=== PATIENT | female | born 1970 | race Caucasian/White ===

== ENCOUNTER 2017-09-25 15:11 | Outpatient (CLI) | payer BC | END 2017-09-25 15:12 | disposition home or self-care (01) | LOC: BICMAMMO 15:11 | PROVIDERS: ATTEND Obstetrics & Gynecology | DX: Z12.31 Encounter for screening mammogram for malignant neoplasm of breast (principal) | CPT/HCPCS: 77063; 77067 ==

== ENCOUNTER 2017-10-04 08:59 | Outpatient (CLI) | payer BC | END 2017-10-04 09:00 | disposition home or self-care (01) | LOC: BICMAMMO 08:59 | PROVIDERS: ATTEND Obstetrics & Gynecology | DX: N63.20 Unspecified lump in the left breast, unspecified quadrant (principal); I88.9 Nonspecific lymphadenitis, unspecified | CPT/HCPCS: G0279 ==

== ENCOUNTER 2018-10-24 15:28 | Outpatient (CLI) | payer BC ==
[2018-10-24 16:28] LABS: Hemoglobin 14.1 g/dL (12.0-16.0); Mean Corpuscular HGB CONC 34.6 g/dL (32.0-36.0); Mean Corpuscular Hemoglobin 30.8 pg (27.0-31.0); Mean Platelet Volume 7.2 fL (7.4-10.4); Platelet Count 309 thou/uL (130-400); Red Blood Cell (RBC) Count 4.59 mill/uL (4.20-5.40); White Blood Cell (WBC) Count 9.8 thou/uL (4.8-10.8)
== END 2018-10-24 15:29 | disposition home or self-care (01) ==
LOC: LABBT 15:28
PROVIDERS: ATTEND Obstetrics & Gynecology
DX: Z01.812 Encounter for preprocedural laboratory examination (principal); R10.2 Pelvic and perineal pain; N94.10 Unspecified dyspareunia; N93.9 Abnormal uterine and vaginal bleeding, unspecified
CPT/HCPCS: 84702; 85027; 86850; 86900; 86901

== ENCOUNTER 2018-10-28 06:25 | Day surgery (SDC) | payer BC ==
[2018-10-28] MEDS ORDERED: Famotidine/PF 20 mg/2ml Vial ONE (06:53)
[2018-10-28] MEDS ORDERED: Gabapentin 300 MG CAP ONE (06:53)
[2018-10-28] MEDS ORDERED: CeleCOXIB 100 MG CAP ONE (06:54)
[2018-10-28] MEDS ORDERED: Fentanyl 250 MCG/5 ML VIAL ONE (06:55)
[2018-10-28] MEDS ORDERED: Midazolam HCl 2 mg/2 ml Vial ONE ×2 (06:55→07:39)
[2018-10-28] MEDS ORDERED: Bupivacaine HCl 0.5%/Epinephrine 1:200,000/PF 30 ml Vial ONE (06:56)
--- NOTE | 2018-10-28 07:41 | HP ---
ANTICIPATED DATE OF SURGERY: She is scheduled for surgery on 10/28/2018. HISTORY OF PRESENT ILLNESS: Ms. Espinoza is a 48-year-old white female G3, P2, A1 with 2 spontaneous vaginal deliveries. She has been having issues with chronic pelvic pain and dyspareunia. This has been an ongoing issue for over a year, but recently the dyspareunia and pelvic pain have worsened since April of 2018. Secondary to these findings where she was complaining of a chronic yellowish vaginal discharge and pain with intercourse and pain post-intercourse, she saw Dr. Jordan Mueller in June of this year. At that time, she was noted to have a yellowish vaginal discharge and some tenderness in the upper vagina and pelvis. It was felt like a bandlike area in the upper third of the vagina, which was tender on exam. She was screened for numerous infectious processes, which were all negative for GC, chlamydia, and ureaplasma. She did have evidence of Gardnerella consistent with bacterial vaginosis and was treated for this. She has had a previous negative Pap smear and HPV in January 2016. She had a pelvic ultrasound performed at that visit showing her essentially a normal ultrasound with endometrium measuring 5.8 mm. The uterus had findings consistent with adenomyosis, and no adnexal masses were seen or abnormal fluid collections. She continues to have pain on her intercourse and chronic pelvic pain, which she had received Zithromax before the discharge back in June with no significant improvement. Due to the combination of all these factors, now she is deciding to proceed with a hysterectomy. Her menses have been controlled with oral contraceptives and no abnormal breakthrough or heavy bleeding reported currently. PAST MEDICAL HISTORY: Significant for depression and anxiety. She also has some nasal rhinitis issues. PAST SURGICAL HISTORY: No prior surgical history. ALLERGIES: NO KNOWN DRUG ALLERGIES. CURRENT MEDICATIONS: 1. OCP Ashlyna daily. 2. Olopatadine nasal spray 0.6% spray daily. 3. Sertraline 75 mg p.o. daily. SOCIAL HISTORY: Nonsmoker. No excessive alcohol use. FAMILY HISTORY: For hypertension in a grandmother with cervical cancer in the past. PHYSICAL EXAMINATION: VITAL SIGNS: The patient is 5 feet 2 inches, weight 184, BMI 33.7. Blood pressure 140/82, respirations 18, pulse 82. HEENT: Within normal limits. CHEST: Clear to auscultation. HEART: Regular rate and rhythm. S1, S2 heart sounds. No murmurs, rubs, or gallops. ABDOMEN: Soft, nontender, and nondistended with no palpable masses. PELVIC: Vulva has no lesions. Vagina, mainly the upper third of the vagina, there was tenderness and somewhat resistance to opening of the upper third of the vagina and some scarring with Graves speculum. Cervix was visualized following this bandlike scarring and had some yellowish discharge, but was not friable. Uterus was small, anteverted, it was mobile, minimal tenderness, and no adnexal masses were appreciated. On bimanual exam, in the upper third of the vagina, there was some of a bandlike resistance, but I was able to get through two fingers past this and palpate the cervix which did feel mobile. ASSESSMENT: This is a 48-year-old white female G3, P2, A1 vaginal deliveries, who was seen with chronic pelvic pain and dyspareunia, and findings on ultrasound consistent with adenomyosis. The patient with deep dyspareunia, notable bandlike scarring circumferentially in the upper third of the vagina. No lesions were seen other than palpating the bandlike area on bimanual exam. So, assessment is to proceed with attempted robotic hysterectomy with bilateral salpingectomy I discussed with the patient that I may need to do some incisions in the upper vagina to release these scar-like tissues and enable removal of the uterus through the vagina. If unable to perform this, then I need to do the ExCITE procedure to remove the uterus specimen with a bag like container through the umbilicus. There is a possibility we may need to proceed with a total abdominal hysterectomy and bilateral salpingectomy if the scarring of the vagina limits the ability for me to place a uterine manipulator for assistance of this robotic surgery. Risks and benefits of procedure have been discussed in detail. She is set for surgery on 10/28/2018. Job ID: [id number]
[2018-10-28] MEDS ORDERED: Zolpidem Tartrate 5 MG TAB PO PRN (09:49)
[2018-10-28] MEDS ORDERED: Bisacodyl 10 MG SUPP PR PRN (09:49)
[2018-10-28] MEDS ORDERED: Ondansetron PF 4 MG/2 ML Vial IVP PRN (09:49)
[2018-10-28] MEDS ORDERED: Promethazine HCl 25 MG/ML VIAL IM PRN ×2 (09:49→10:04)
[2018-10-28] MEDS ORDERED: diphenhydrAMINE 25 MG CAP PO PRN (09:49)
[2018-10-28] MEDS ORDERED: Simethicone Chewable 80 MG TAB PO PRN (09:49)
[2018-10-28] MEDS ORDERED: Morphine 4 MG/ML VIAL SLOW IVP PRN (09:49)
[2018-10-28] MEDS ORDERED: traMADol HCl 50 MG TAB PO PRN ×2 (09:49)
[2018-10-28] MEDS ORDERED: Promethazine HCl 25 MG/ML VIAL SLOW IVP PRN (10:04)
[2018-10-28] MEDS ORDERED: Ondansetron HCl/PF 4 MG/2 ML Vial IVP PRN (10:04)
[2018-10-28] MEDS ORDERED: Meperidine HCl/PF 25 MG/ML VIAL ONE (10:24)
[2018-10-28] MEDS: Sodium Chloride 0.9% 1,000 ML IV SCH ×2 (10:50→18:47)
[2018-10-28] MEDS ORDERED: Acetaminophen 1,000 MG in Premix Bag 1 BAG IVPB SCH (12:00)
[2018-10-28] MEDS: Acetaminophen 1,000 MG in Premix Bag 1 BAG IVPB SCH ×2 (12:25→18:46)
[2018-10-28] MEDS: Ketorolac Tromethamine 30 MG/ML VIAL IVP SCH ×2 (12:26→18:44)
--- NOTE | 2018-10-28 13:20 | OP ---
DATE OF PROCEDURE: 10/28/2018 PREOPERATIVE DIAGNOSES: 1. A 48-year-old white female, G2, P2, with menorrhagia. 2. Chronic pelvic pain and dyspareunia. 3. Dysmenorrhea. 4. Upper vaginal adhesions noted on exam. POSTOPERATIVE DIAGNOSES: 1. A 48-year-old white female, G2, P2, with menorrhagia. 2. Chronic pelvic pain and dyspareunia. 3. Dysmenorrhea. 4. Upper vaginal adhesions noted on exam. PROCEDURES PERFORMED: 1. Robotic total laparoscopic hysterectomy and bilateral salpingectomy. 2. Manual release of upper vaginal wall adhesions. REEL CART OPERATOR SURGEON: Rosa Ramos PA-C ANESTHESIA: General endotracheal. ESTIMATED BLOOD LOSS: 50 mL. COMPLICATIONS: None. COUNTS: Correct x2. FINDINGS: 1. Normal bilateral fallopian tubes and ovaries. 2. Mildly enlarged uterus, somewhat hyperemic-appearing consistent with adenomyosis. 3. Clear urine present in Renee catheter and bladder was watertight to distention over 300 mL postprocedure and intraoperatively. 4. Bilateral ureteral peristalsis visualized postprocedure. 5. A semicircular band-like vaginal wall adhesions noted at the upper third of the vagina, status post sacrectomy, manual dilation. PATHOLOGY: Uterus, cervix, bilateral fallopian tubes. DISPOSITION: Recovery room, stable. DESCRIPTION OF PROCEDURE: The patient previously received informed consent in regard to surgery. She was taken back to the operating room, where she received a general anesthetic agent without complications. She was placed in dorsal lithotomy position and prepped and draped in usual sterile fashion. A Renee catheter was placed at this time. A pelvic exam was performed, where the upper semicircular adhesions of the upper vaginal wall were palpable. I slowly dilated the upper vagina manually by inserting 2 fingers, then 3, then 4 as it opened and the adhesion was broken. Then, I placed a speculum in the vagina. The anterior lip of cervix was grasped with single-tooth tenaculum. The uterus sounded to 8 cm. A MARCELINO uterine manipulator was then placed, a size 3.5 cm cervical cup with 8 cm length was chosen. Once this had been placed, attention was then turned to the abdomen, where perspective trocar sites were infiltrated with 0.5% Marcaine with epinephrine. A 12-mm supraumbilical incision was made. A Veress needle was entered into the peritoneal cavity and the patient's pressure was noted to be less than 5 mm. The abdomen was then insufflated with the patient's pressure of 15 approximately 4.5 L of carbon dioxide gas was instilled. At this time, a 12-mm trocar was placed in the supraumbilical incision and the robotic laparoscope was introduced through trocar sleeve confirming proper entry. The patient was then placed in Trendelenburg position. Additional bilateral lower quadrant 8-mm trocars were placed under laparoscopic guidance along with the right upper quadrant 11-mm kindergarten assistant port. The robot was then docked in usual fashion and I broke scrub and proceeded to carry out the surgery from the operative console while my assistants remained at the bedside. The uterus was elevated from the pelvis by my assistance. The left fallopian tube was grasped by my kindergarten assistant, and the mesosalpinx area of the left fallopian tube was incised with monopolar scissors and then bipolar fenestrated cautery was utilized to coagulate the mesosalpinx for hemostasis. The fallopian tube was then excised and removed up through the right upper quadrant port by my kindergarten assistant. The left utero-ovarian ligament and broad ligament structures were coagulated and transected until the left round ligament was reached. It was coagulated and transected. The anterior leaf of the vesicouterine peritoneum was incised and the bladder was then taken down in a layering technique in a sharp and blunt fashion, dissecting the bladder past the cervical vaginal junction. The uterine vessels on the left side were skeletonized anteriorly and posteriorly and they were coagulated in the internal cervical os region with bipolar fenestrated cautery. The bladder was distended intermittently during this time for confirmation of the location and was noted to be well below the operative sites. The right fallopian tube was again grasped by my kindergarten assistant. The mesosalpinx was coagulated and transected and the tube was removed in the right upper quadrant port. The right utero-ovarian ligament was coagulated and transected with Bovie cautery and monopolar scissors. Again, serial coagulation and transection of the right round ligament was reached. It was coagulated and transected. Anterior leaf of the broad ligament was entered. Vesicouterine peritoneum was incised completing the bladder flap dissection. Again, uterine vessels were skeletonized on the right side anteriorly and posteriorly and they were coagulated in the internal cervical os region. Courses of the ureter were also noted to be well lateral to the and inferior to the operative field. The bladder was again distended and the cervix was cleaned off any remaining adventitial tissue of releasing the bladder further past the cervical vaginal margin. At this time, the anterior colpotomy was then made starting from 12 o'clock to 3 o'clock and 12 o'clock to 9 o'clock position. The vessels were coagulated at the internal cervical os region again with bipolar fenestrated cautery at the 3 o'clock and 9 o'clock positions securing hemostasis. The colpotomy was then completed from 6 o'clock to 9 o'clock and 6 o'clock to 3 o'clock. The specimen was delivered into the vaginal vault. The monopolar scissors were switched out for a Derek needle national van truck driver. The vaginal cuff was then grasped with the needle national van truck driver and areas of any oozing were made hemostatic with bipolar fenestrated cautery. My kindergarten assistant has irrigated the field and spot point coagulation was carried out for hemostasis. Once it has been completed, then the Stratafix was brought into the field by my kindergarten assistant and the vaginal cuff was closed in 2 layer closure starting at the right angle full-thickness closure to the left angle back towards the midline. The excess suture and needle were cut and removed through the right upper quadrant kindergarten assistant port. The pelvis again was irrigated and suctioned. Hemostasis on the pedicle sites was confirmed. The bladder was draining clear urine. Bilateral ureteral peristalsis was visualized. The robot was then undocked. We removed the trocar sleeves. I rescrubbed and we placed a [id number] stitch of 0 Vicryl in the deep fascia of the umbilical incision. The remainder of the trocar sites were closed with 4-0 Monocryl and Dermabond for hemostasis. I inspected the vaginal vault. There was some of the abrasive type oozing at the both the 3 o'clock and 9 o'clock positions in the upper vaginal vault from the sacrectomy. These were cauterized with bipolar cautery. With hemostasis, an additional moistened Kerlix vaginal pack was placed. The patient was then awakened from anesthesia and transferred to recovery room in stable condition. Job ID: [id number]
[2018-10-28] MEDS ORDERED: PROPOFOL 200 MG/20 ML VIAL ONE (17:15)
[2018-10-28] MEDS ORDERED: Dexamethasone 20 MG/5 ML VIAL ONE (17:15)
[2018-10-28] MEDS ORDERED: Rocuronium Bromide 10 MG/ML (10ML VIAL) ONE (17:15)
[2018-10-28] MEDS ORDERED: Ondansetron PF 4 MG/2 ML Vial ONE (17:15)
[2018-10-28] MEDS ORDERED: Lidocaine 1% PF 5 ML VIAL ONE (17:15)
[2018-10-28] MEDS ORDERED: ePHEDrine 50 MG/ML VIAL ONE ×2 (17:15)
[2018-10-28] MEDS ORDERED: Glycopyrrolate 0.2 MG/ML 5 ML SYRINGE ONE (17:15)
[2018-10-29] MEDS: Ketorolac Tromethamine 30 MG/ML VIAL IVP SCH (00:16)
[2018-10-29] MEDS: Acetaminophen 1,000 MG in Premix Bag 1 BAG IVPB SCH (00:16)
[2018-10-29] MEDS: Sodium Chloride 0.9% 1,000 ML IV SCH (03:42)
[2018-10-29 05:54] LABS: Hemoglobin 12.9 g/dL (12.0-16.0); Mean Corpuscular HGB CONC 33.9 g/dL (32.0-36.0); Mean Corpuscular Hemoglobin 30.9 pg (27.0-31.0); Mean Corpuscular Volume 91.2 fL (78.0-98.0); Mean Platelet Volume 7.3 fL (7.4-10.4); Platelet Count 266 thou/uL (130-400); RBC Distribution Width 11.9 % (11.5-14.5); Red Blood Cell (RBC) Count 4.17 mill/uL (4.20-5.40); White Blood Cell (WBC) Count 13.9 thou/uL (4.8-10.8)
[2018-10-29] MEDS ORDERED: Ibuprofen 800 MG TAB PO SCH (06:00)
[2018-10-29 06:50] VITALS: BP 141/82; TEMP 99
--- NOTE | 2018-10-29 08:19 | PDOC.EVN ---
Event Note - Event Note Event Note: Patient is tolerating diet. Ambulating and voiding without issues. Good pain control. Ready to go home. O:AFVSS. HCT 38% ABDOMEN: trochar sites clean , dry, and intact. Active bowel sounds. A/P: Doing well post op day 1 from robotic tlh/bs and lysis of vaginal adhesions. D/c home. Follow up in 2 and 6 weeks.
[2018-10-29] MEDS ORDERED: Fluticasone Propionate Nasal Spray 16 gm Bottle NASAL SCH (09:00)
[2018-10-29] MEDS ORDERED: Loratadine 10 MG TAB PO SCH (09:00)
--- NOTE | 2018-10-29 09:57 | DIS ---
DATE OF ADMISSION: 10/28/2018 DATE OF DISCHARGE: 10/29/2018 DATE OF SURGERY: 10/28/2018. DIAGNOSES: 1. Menorrhagia. 2. Pelvic pain. 3. Dyspareunia. 4. Vaginal adhesions. PROCEDURES PERFORMED: Robotic total laparoscopic hysterectomy, bilateral salpingectomy with lysis of vaginal adhesions. SUMMARY HOSPITAL COURSE: Ms. Espinoza is a 48-year-old white female, who has had long history of menorrhagia, dysmenorrhea, and chronic pelvic pain. She is also having dyspareunia and has now recently developed some upper vaginal adhesions. She underwent definitive surgical therapy on 10/28 with robotic total laparoscopic hysterectomy and bilateral salpingectomy. Manual vaginal adhesion release was performed. Postoperatively, the patient has done well. She began ambulating and voiding without difficulty in the evening of postop day #1 and is tolerating regular diet. She has good pain control with ibuprofen orally. Her hematocrit this morning is 38% with stable vital signs. Pathology is pending at the time of this dictation. Plan is for discharge home this morning. Tramadol 50 mg q.6 hours p.r.n. prescription will be given. She is to use [id number] ibuprofen as directed. Follow up pathology when this results are available and she has a followup in 2 and 6 weeks. Job ID: [id number]
== END 2018-10-29 09:40 | disposition home or self-care (01) ==
LOC: SDC 06:25 → 3SE 09:47 → SDC 10-29 09:40
PROVIDERS: ATTEND Obstetrics & Gynecology
PROC: 0UT74ZZ Resection of Bilateral Fallopian Tubes, Percutaneous Endoscopic Approach (ICD-10-PCS; principal; 2018-10-28)
PROC: 0UT94ZZ Resection of Uterus, Percutaneous Endoscopic Approach (ICD-10-PCS; principal; 2018-10-28)
DX: N92.0 Excessive and frequent menstruation with regular cycle (principal); N94.6 Dysmenorrhea, unspecified; D25.2 Subserosal leiomyoma of uterus; N72 Inflammatory disease of cervix uteri; F41.8 Other specified anxiety disorders; F32.9 Major depressive disorder, single episode, unspecified; Z79.899 Other long term (current) drug therapy
CPT/HCPCS: 36415; 85027; 88307; J0131; J0670; J0690; J1100; J1885; J2001; J2175; J2250; J2405; J2704; J3010; J3490; S0028